=== PATIENT | female | born 1990 | race African-American/Black ===

== ENCOUNTER 2019-02-08 09:51 | Emergency (ER) | payer MEDICAID, OTHER ==
[~2019-02-08] VITALS: Ht 154.9 cm; Wt 94.8 kg
[2019-02-08 10:59] LABS: Eosinophils # (auto) 0.1 uL; Hemoglobin 13.6 g/dL (12.2-16.2); Monocytes # (auto) 0.4 uL
[2019-02-08 11:01] LABS: Basophils # (auto) 0 uL; Basophils % (auto) 0.7 % (0.0-2.0); Eosinophils % (auto) 2.9 % (0.0-7.0); Lymphocytes # (auto) 1.7 uL; Lymphocytes % (auto) 36.5 % (10.0-50.0); Mean Corpuscular Hgb Conc. 32.5 g/dL (32.0-36.0); Mean Corpuscular Volume 80.1 fL (80.0-100.0); Monocytes % (auto) 7.8 % (0.0-12.0); Neutrophils # (auto) 2.5 uL; Neutrophils % (auto) 52.1 % (37.0-80.0); Nucleated Red Blood Cells % 0.1 %; Platelet Count (auto) 219 10^3/uL (140-450); Red Blood Cells 5.24 10^6/uL (4.0-5.20); Red Cell Distribution Width 13.8 % (11.8-14.3); White Blood Cell 4.7 10^3/uL (4.4-10.8)
[2019-02-08 11:12] LABS: Urine Bacteria NONE SEEN /hpf (None Seen); Urine Blood 2+ /uL (Negative); Urine Mucus FEW (None Seen); Urine Specific Gravity 1.021 (1.001-1.035); Urine WBC 48 /hpf (0 - 5)
[2019-02-08 11:35] LABS: Albumin 3.8 g/dL (3.4-5.0); Bilirubin, Total 0.5 mg/dL (0.2-1.0); Calcium 8.8 mg/dL (8.5-10.1); Potassium 4.2 mmol/L (3.5-5.1); Total Protein 7.4 g/dL (6.4-8.2)
[2019-02-08 15:18] VITALS: BP 128/86
== END 2019-02-08 15:20 | disposition home or self-care (01) ==
LOC: ER 09:51
DX: K29.70 Gastritis, unspecified, without bleeding (principal); K44.9 Diaphragmatic hernia without obstruction or gangrene; N39.0 Urinary tract infection, site not specified
CPT/HCPCS: 36415; 74176; 80053; 81001; 81025; 83690; 85025

== ENCOUNTER 2020-04-30 08:53 | Emergency (ER) | payer MEDICAID ==
[~2020-04-30] VITALS: Ht 154.9 cm; Wt 94.3 kg
[2020-04-30] MEDS ORDERED: LIDOCAINE 1% HCL (LOCAL ANESTH.) INJ 20ML MDV ONE (10:17)
[2020-04-30 10:58] VITALS: BP 139/99
== END 2020-04-30 11:10 | disposition home or self-care (01) ==
LOC: ER 08:53
DX: L02.414 Cutaneous abscess of left upper limb (principal)
CPT/HCPCS: 10060; 99283; J2001

== ENCOUNTER 2020-05-02 08:03 | Emergency (ER) | payer MEDICAID ==
[~2020-05-02] VITALS: Ht 154.9 cm; Wt 94.3 kg
[2020-05-02 08:16] VITALS: BP 126/87
== END 2020-05-02 08:45 | disposition home or self-care (01) ==
LOC: ER 08:03
DX: Z48.00 Encounter for change or removal of nonsurgical wound dressing (principal); Z88.2 Allergy status to sulfonamides

== ENCOUNTER 2020-05-21 09:28 | Emergency (ER) | payer MEDICAID ==
[~2020-05-21] VITALS: Ht 154.9 cm; Wt 95.3 kg
[2020-05-21 09:58] VITALS: BP 137/90
== END 2020-05-21 09:57 | disposition home or self-care (01) ==
LOC: ER 09:28
DX: L02.416 Cutaneous abscess of left lower limb (principal); Z88.2 Allergy status to sulfonamides

== ENCOUNTER 2020-06-19 08:01 | Emergency (ER) | payer MEDICAID ==
[~2020-06-19] VITALS: Ht 154.9 cm; Wt 95.3 kg
[2020-06-19 08:07] VITALS: BP 118/75
== END 2020-06-19 08:41 | disposition home or self-care (01) ==
LOC: ER 08:01
DX: L73.9 Follicular disorder, unspecified (principal); Z88.2 Allergy status to sulfonamides

== ENCOUNTER 2020-07-19 11:46 | Emergency (ER) | payer MEDICAID ==
[~2020-07-19] VITALS: Ht 154.9 cm; Wt 94.8 kg
[2020-07-19 12:10] VITALS: BP 128/83
[2020-07-19] MEDS ORDERED: LIDOCAINE 1% HCL (LOCAL ANESTH.) INJ 20ML MDV IJ ONE (12:30)
== END 2020-07-19 13:10 | disposition home or self-care (01) ==
LOC: ER 11:46
DX: N61.1 Abscess of the breast and nipple (principal)
CPT/HCPCS: 10060; 99283; J2001

== ENCOUNTER 2021-09-15 10:05 | Emergency (ER) | payer MEDICAID ==
[~2021-09-15] VITALS: Ht 154.9 cm; Wt 95.3 kg
[2021-09-15 10:48] LABS: Urine Bacteria NONE SEEN /hpf (None Seen); Urine Blood 1+ /uL (Negative); Urine Mucus FEW (None Seen); Urine Specific Gravity 1.015 (1.001-1.035); Urine WBC 1 /hpf (0 - 5)
[2021-09-15 11:29] VITALS: BP 140/80
== END 2021-09-15 11:28 | disposition home or self-care (01) ==
LOC: ER 10:05
DX: R10.2 Pelvic and perineal pain (principal); Z88.0 Allergy status to penicillin; Z88.2 Allergy status to sulfonamides
CPT/HCPCS: 81001; 81025

== ENCOUNTER 2021-10-02 15:34 | Emergency (ER) | payer MEDICAID ==
[~2021-10-02] VITALS: Ht 154.9 cm; Wt 95.3 kg
[2021-10-02 16:42] VITALS: BP 158/91
[2021-10-02] MEDS ORDERED: IPRATROPIUM BROM 0.5 MG/2.5ML INH SOL NEB ONE (17:15)
[2021-10-02] MEDS ORDERED: ALBUTEROL SULF 2.5 MG/0.5ML(0.5%) NEB SOLN NEB ONE (17:15)
[2021-10-02] MEDS ORDERED: methylPREDNISolone SOD SUCC 125 MG/2 ML VL IM ONE (17:15)
[2021-10-02] MEDS ORDERED: PRED20TA2 PO (18:08)
== END 2021-10-02 18:18 | disposition home or self-care (01) ==
LOC: ER 15:37
DX: J45.901 Unspecified asthma with (acute) exacerbation (principal)
CPT/HCPCS: 94640; 96372; 99283; J2930; J7644

== ENCOUNTER 2021-10-04 12:52 | Emergency (ER) | payer MEDICAID ==
[~2021-10-04] VITALS: Ht 154.9 cm; Wt 92.5 kg
[~2021-10-04 12:52] MED LIST: PRED20TA2 PO
[2021-10-04] MEDS ORDERED: SODIUM CHLORIDE 0.9% 1,000 ML IV ONE (13:00)
[2021-10-04 13:02] VITALS: BP 150/91
[2021-10-04] MEDS ORDERED: ACETAMINOPHEN 325 MG TAB PO ONE (13:30)
[2021-10-04 15:38] LABS: Urine Bacteria NONE SEEN /hpf (None Seen); Urine Blood TRACE /uL (Negative); Urine Specific Gravity 1.016 (1.001-1.035); Urine WBC 1 /hpf (0 - 5)
[2021-10-04 17:49] LABS: Basophils # (auto) 0 10 ^3/uL (0-0.2); Eosinophils # (auto) 0 10 ^3/uL (0-0.8); Hemoglobin 13.9 g/dL (12.2-16.2); Lymphocytes # (auto) 0.8 10 ^3/uL (0.4-5.4); Monocytes # (auto) 0.4 10 ^3/uL (0-1.3)
[2021-10-04 17:51] LABS: Basophils % (auto) 0.3 % (0.0-2.0); Lymphocytes % (auto) 11.9 % (10.0-50.0); Mean Corpuscular Hemoglobin 25.3 pg (28.0-32.0); Mean Corpuscular Hgb Conc. 32.4 g/dL (32.0-36.0); Mean Corpuscular Volume 77.9 fL (80.0-100.0); Monocytes % (auto) 6.5 % (0.0-12.0); Neutrophils # (auto) 5.3 10 ^3/uL (1.6-8.6); Neutrophils % (auto) 81.3 % (37.0-80.0); Red Blood Cells 5.51 10^6/uL (4.0-5.20); Red Cell Distribution Width 13.6 % (11.8-14.3); White Blood Cell 6.6 10^3/uL (4.4-10.8)
[2021-10-04 18:15] LABS: Albumin 4.1 g/dL (3.4-5.0); CRP High Sensitivity 0.17 mg/dL (< 0.3); Calcium 9.3 mg/dL (8.5-10.1); Magnesium 3.2 mg/dL (1.6-2.6); Potassium 3.7 mmol/L (3.5-5.1)
[2021-10-04 18:21] LABS: Bilirubin, Total 0.7 mg/dL (0.2-1.0); Total Protein 8.3 g/dL (6.4-8.2)
== END 2021-10-04 21:36 | disposition left against medical advice (07) ==
LOC: ER 12:52
DX: R00.0 Tachycardia, unspecified (principal); B34.9 Viral infection, unspecified; J45.909 Unspecified asthma, uncomplicated; Z88.0 Allergy status to penicillin; Z88.2 Allergy status to sulfonamides; Z79.899 Other long term (current) drug therapy; Z20.822 Contact with and (suspected) exposure to COVID-19
CPT/HCPCS: 36415; 71045; 80053; 81001; 81025; 82728; 83735; 84484; 85025; 85379; 86141; 87426; 93005

== ENCOUNTER 2021-11-07 07:34 | Emergency (ER) | payer MEDICAID ==
[~2021-11-07] VITALS: Ht 154.9 cm; Wt 94.8 kg
[2021-11-07 07:56] VITALS: BP 153/87
[2021-11-07] MEDS ORDERED: LIDOCAINE 1% HCL (LOCAL ANESTH.) INJ 20ML MDV IJ ONE (08:00)
[2021-11-07] MEDS ORDERED: CLIN300C8 PO (08:30)
[2021-11-07] MEDS ORDERED: IBUP800T27 PO (08:30)
== END 2021-11-07 09:03 | disposition home or self-care (01) ==
LOC: ER 07:34
DX: N61.1 Abscess of the breast and nipple (principal); J45.909 Unspecified asthma, uncomplicated; Z79.899 Other long term (current) drug therapy; Z88.0 Allergy status to penicillin; Z88.2 Allergy status to sulfonamides
CPT/HCPCS: 10060; 87205; 99283; J2001

== ENCOUNTER 2022-05-17 14:10 | Emergency (ER) | payer MEDICAID ==
[~2022-05-17] VITALS: Ht 154.9 cm; Wt 100.0 kg
[~2022-05-17 14:10] MED LIST changes: +CLIN300C8 PO; +IBUP800T27 PO
[2022-05-17 14:54] LABS: Basophils # (auto) 0 10 ^3/uL (0-0.2); Eosinophils # (auto) 0.1 10 ^3/uL (0-0.8); Hemoglobin 12.6 g/dL (12.2-16.2); Lymphocytes # (auto) 1.9 10 ^3/uL (0.4-5.4); Mean Corpuscular Volume 76.4 fL (80.0-100.0); Monocytes # (auto) 0.4 10 ^3/uL (0-1.3); Neutrophils # (auto) 2.3 10 ^3/uL (1.6-8.6)
[2022-05-17 14:55] LABS: Basophils % (auto) 0.8 % (0.0-2.0); Eosinophils % (auto) 2.8 % (0.0-7.0); Hematocrit 40.3 % (36.0-46.0); Lymphocytes % (auto) 38.9 % (10.0-50.0); Mean Corpuscular Hgb Conc. 31.3 g/dL (32.0-36.0); Monocytes % (auto) 8.4 % (0.0-12.0); Neutrophils % (auto) 49.1 % (37.0-80.0); Red Blood Cells 5.28 10^6/uL (4.0-5.20); Red Cell Distribution Width 14.4 % (11.8-14.3); White Blood Cell 4.8 10^3/uL (4.4-10.8)
[2022-05-17 15:09] LABS: Albumin 3.5 g/dL (3.4-5.0); BUN/Creatinine Ratio 11.6; Calcium 8.5 mg/dL (8.5-10.1)
[2022-05-17 15:10] LABS: Mean Corpuscular Hemoglobin 23.9 pg (28.0-32.0)
[2022-05-17 15:12] LABS: Bilirubin, Total 0.5 mg/dL (0.2-1.0); Total Protein 7.2 g/dL (6.4-8.2)
[2022-05-17] MEDS: MECLIZINE HCL 25 MG TAB PO ONE (16:30)
[2022-05-17 16:56] LABS: Urine Bacteria NONE SEEN /hpf (None Seen); Urine Blood 1+ /uL (Negative); Urine Specific Gravity 1.015 (1.001-1.035); Urine WBC 2 /hpf (0 - 5)
[2022-05-17] MEDS ORDERED: MECL1TAB42 PO (17:33)
[2022-05-17] MEDS ORDERED: NITR-87 PO (17:41)
[2022-05-17 17:49] VITALS: BP 125/83
== END 2022-05-17 17:50 | disposition home or self-care (01) ==
LOC: ER 14:17
DX: R42 Dizziness and giddiness (principal); N39.0 Urinary tract infection, site not specified
CPT/HCPCS: 36415; 70450; 80053; 81001; 81025; 85025; 93005; 99285; J8597

== ENCOUNTER 2022-06-26 10:14 | Emergency (ER) | payer MEDICAID ==
[~2022-06-26] VITALS: Ht 175.3 cm; Wt 95.5 kg
[~2022-06-26 10:14] MED LIST changes: +MECL1TAB42 PO; +NITR-87 PO
[2022-06-26 10:50] LABS: Basophils # (auto) 0 10 ^3/uL (0-0.2); Eosinophils # (auto) 0.1 10 ^3/uL (0-0.8); Eosinophils % (auto) 1.7 % (0.0-7.0); Hemoglobin 12.9 g/dL (12.2-16.2); Lymphocytes # (auto) 1.7 10 ^3/uL (0.4-5.4); Mean Corpuscular Volume 76.3 fL (80.0-100.0); Monocytes # (auto) 0.4 10 ^3/uL (0-1.3); Neutrophils # (auto) 2.8 10 ^3/uL (1.6-8.6)
[2022-06-26 10:52] LABS: Basophils % (auto) 0.7 % (0.0-2.0); Hematocrit 41.1 % (36.0-46.0); Mean Corpuscular Hemoglobin 23.9 pg (28.0-32.0); Mean Corpuscular Hgb Conc. 31.3 g/dL (32.0-36.0); Monocytes % (auto) 8.7 % (0.0-12.0); Neutrophils % (auto) 54.9 % (37.0-80.0); Nucleated Red Blood Cells % 0.2 %; Red Blood Cells 5.38 10^6/uL (4.0-5.20); Red Cell Distribution Width 14.5 % (11.8-14.3)
[2022-06-26 10:58] LABS: Urine Bacteria FEW /hpf (None Seen); Urine Blood Negative /uL (Negative); Urine Mucus FEW (None Seen); Urine Specific Gravity 1.024 (1.001-1.035); Urine WBC 8 /hpf (0 - 5)
[2022-06-26 11:09] LABS: Albumin 3.7 g/dL (3.4-5.0); Calcium 8.6 mg/dL (8.5-10.1); Potassium 4.3 mmol/L (3.5-5.1)
[2022-06-26 11:12] LABS: BUN/Creatinine Ratio 10.9; Bilirubin, Total 0.8 mg/dL (0.2-1.0); Total Protein 7.3 g/dL (6.4-8.2)
[2022-06-26] MEDS ORDERED: PANT40TA2 PO (12:13)
[2022-06-26] MEDS ORDERED: NITR-87 PO (12:13)
[2022-06-26 12:33] VITALS: BP 121/77
== END 2022-06-26 12:36 | disposition home or self-care (01) ==
LOC: ER 10:14
DX: K29.70 Gastritis, unspecified, without bleeding (principal); N39.0 Urinary tract infection, site not specified; J45.909 Unspecified asthma, uncomplicated; I10 Essential (primary) hypertension; Z88.2 Allergy status to sulfonamides; Z88.1 Allergy status to other antibiotic agents
CPT/HCPCS: 36415; 80053; 81001; 83690; 85025

== ENCOUNTER 2022-12-03 08:32 | Emergency (ER) | payer MEDICAID ==
[~2022-12-03] VITALS: Ht 157.5 cm; Wt 110.3 kg
[~2022-12-03 08:32] MED LIST changes: +PANT40TA2 PO
[2022-12-03 09:20] LABS: Urine Bacteria FEW /hpf (None Seen); Urine Blood Negative /uL (Negative); Urine Mucus FEW (None Seen); Urine Specific Gravity 1.025 (1.001-1.035); Urine WBC 15 /hpf (0 - 5)
[2022-12-03 09:34] VITALS: BP 121/69
[2022-12-03 09:37] LABS: Basophils # (auto) 0 10 ^3/uL (0-0.2); Eosinophils # (auto) 0.1 10 ^3/uL (0-0.8); Mean Corpuscular Hemoglobin 23.8 pg (28.0-32.0); Monocytes # (auto) 0.4 10 ^3/uL (0-1.3); Monocytes % (auto) 7.8 % (0.0-12.0); Neutrophils # (auto) 3.4 10 ^3/uL (1.6-8.6); Nucleated Red Blood Cells % 0.1 %
[2022-12-03 09:39] LABS: Basophils % (auto) 0.9 % (0.0-2.0); Eosinophils % (auto) 1.3 % (0.0-7.0); Hematocrit 38.8 % (36.0-46.0); Hemoglobin 12.4 g/dL (12.2-16.2); Lymphocytes # (auto) 1.5 10 ^3/uL (0.4-5.4); Lymphocytes % (auto) 28.4 % (10.0-50.0); Mean Corpuscular Volume 74.4 fL (80.0-100.0); Neutrophils % (auto) 61.6 % (37.0-80.0); Red Blood Cells 5.22 10^6/uL (4.0-5.20); Red Cell Distribution Width 14.8 % (11.8-14.3); White Blood Cell 5.4 10^3/uL (4.4-10.8)
[2022-12-03 09:45] LABS: Amphetamine Screen, Urine NEGATIVE (NEGATIVE); Barbiturate Scree,Urine NEGATIVE (NEGATIVE); Benzodiazephine Screen, Urine NEGATIVE (NEGATIVE); Cannabinoid Screen, Urine POSITIVE (NEGATIVE); Cocaine Screen, Urine NEGATIVE (NEGATIVE); Opiate Scree,Urine NEGATIVE (NEGATIVE); Phencyclidine Screen, Urine NEGATIVE (NEGATIVE)
[2022-12-03 09:55] LABS: Albumin 3.7 g/dL (3.4-5.0); BUN/Creatinine Ratio 15.1; Bilirubin, Total 0.5 mg/dL (0.2-1.0); Calcium 8.9 mg/dL (8.5-10.1); Potassium 4.1 mmol/L (3.5-5.1); Total Protein 7.7 g/dL (6.4-8.2)
[2022-12-03 10:01] LABS: Alcohol, Urine < 3.0 mg/dL (0-10)
[2022-12-03] MEDS ORDERED: IBUP800T27 PO (10:43)
[2022-12-03] MEDS ORDERED: CIPR-173 PO (10:43)
== END 2022-12-03 10:50 | disposition home or self-care (01) ==
LOC: ER 08:32
DX: N39.0 Urinary tract infection, site not specified (principal); K83.8 Other specified diseases of biliary tract; J45.909 Unspecified asthma, uncomplicated; K21.9 Gastro-esophageal reflux disease without esophagitis; I10 Essential (primary) hypertension; Z87.440 Personal history of urinary (tract) infections; Z88.0 Allergy status to penicillin; Z88.2 Allergy status to sulfonamides
CPT/HCPCS: 36415; 76705; 80053; 80307; 81001; 81025; 82150; 83690; 85025

== ENCOUNTER 2023-03-08 08:03 | Emergency (ER) | payer MEDICAID ==
[~2023-03-08] VITALS: Ht 157.5 cm; Wt 99.0 kg
[~2023-03-08 08:03] MED LIST changes: +CIPR-173 PO; +CLIN300C70 PO; -CLIN300C8 PO; +IBUP-1456 PO; -IBUP800T27 PO
[2023-03-08 08:54] LABS: Urine Bacteria NONE SEEN /hpf (None Seen); Urine Blood Negative /uL (Negative); Urine Mucus MODERATE (None Seen); Urine Specific Gravity 1.025 (1.001-1.035); Urine WBC 3 /hpf (0 - 5)
[2023-03-08 09:23] VITALS: BP 139/98
[2023-03-08] MEDS ORDERED: ONDANSETRON ODT 4 MG TAB PO ONE (09:30)
[2023-03-08] MEDS ORDERED: ACETAMINOPHEN 500 MG TAB PO ONE (09:30)
[2023-03-08 10:00] LABS: Basophils # (auto) 0 10 ^3/uL (0-0.2); Basophils % (auto) 0.2 % (0.0-2.0); Eosinophils # (auto) 0 10 ^3/uL (0-0.8); Monocytes # (auto) 0.4 10 ^3/uL (0-1.3); Neutrophils # (auto) 1.4 10 ^3/uL (1.6-8.6)
[2023-03-08 10:02] LABS: Eosinophils % (auto) 0.7 % (0.0-7.0); Hemoglobin 13.3 g/dL (12.2-16.2); Lymphocytes # (auto) 1.2 10 ^3/uL (0.4-5.4); Lymphocytes % (auto) 38.7 % (10.0-50.0); Mean Corpuscular Hemoglobin 23.5 pg (28.0-32.0); Mean Corpuscular Hgb Conc. 31.7 g/dL (32.0-36.0); Mean Corpuscular Volume 74.1 fL (80.0-100.0); Monocytes % (auto) 13.9 % (0.0-12.0); Neutrophils % (auto) 46.5 % (37.0-80.0); Nucleated Red Blood Cells % 0.3 %; Red Blood Cells 5.67 10^6/uL (4.0-5.20); Red Cell Distribution Width 15.4 % (11.8-14.3)
[2023-03-08 10:18] LABS: Albumin 3.7 g/dL (3.4-5.0); Calcium 8.7 mg/dL (8.5-10.1); Potassium 3.5 mmol/L (3.5-5.1)
[2023-03-08 10:28] LABS: BUN/Creatinine Ratio 8.8 (10.0-20.0); Bilirubin, Total 0.6 mg/dL (0.2-1.0); Total Protein 7.6 g/dL (6.4-8.2)
[2023-03-08] MEDS ORDERED: ACET-1079 PO (11:41)
[2023-03-08] MEDS ORDERED: ZOFR4T PO (11:41)
[2023-03-08] MEDS ORDERED: CEPH500T PO (11:41)
[2023-03-08] MEDS ORDERED: cefTRIAXone SOD 1,000 MG VL IM ONE (11:45)
[2023-03-08] MEDS ORDERED: LIDOCAINE 1% HCL (LOCAL ANESTH.) INJ 20ML MDV ID ONE (12:00)
== END 2023-03-08 12:08 | disposition home or self-care (01) ==
LOC: ER 08:03
DX: N12 Tubulo-interstitial nephritis, not specified as acute or chronic (principal); J45.909 Unspecified asthma, uncomplicated; K21.9 Gastro-esophageal reflux disease without esophagitis; I10 Essential (primary) hypertension; Z88.0 Allergy status to penicillin; Z88.2 Allergy status to sulfonamides; Z79.899 Other long term (current) drug therapy
CPT/HCPCS: 36415; 71045; 74176; 80053; 81001; 81025; 83690; 85025; 87086; 96372; 99285; J0696; J2001; Q0162

== ENCOUNTER 2023-08-22 06:50 | Emergency (ER) | payer MEDICAID ==
[~2023-08-22] VITALS: Ht 157.5 cm; Wt 98.0 kg
[~2023-08-22 06:50] MED LIST changes: +ACET-1079 PO; +CEPH500T PO; +ZOFR4T PO
[2023-08-22 07:25] LABS: Basophils # (auto) 0 10 ^3/uL (0-0.2); Basophils % (auto) 0.5 % (0.0-2.0); Eosinophils # (auto) 0.1 10 ^3/uL (0-0.8); Eosinophils % (auto) 2.2 % (0.0-7.0); Hematocrit 38.2 % (36.0-46.0); Lymphocytes # (auto) 2.2 10 ^3/uL (0.4-5.4); Lymphocytes % (auto) 37.6 % (10.0-50.0); Mean Corpuscular Hemoglobin 23.6 pg (28.0-32.0); Mean Corpuscular Hgb Conc. 31.3 g/dL (32.0-36.0); Mean Corpuscular Volume 75.3 fL (80.0-100.0); Monocytes # (auto) 0.5 10 ^3/uL (0-1.3); Monocytes % (auto) 8.7 % (0.0-12.0); Nucleated Red Blood Cells % 0.1 %; Red Blood Cells 5.07 10^6/uL (4.0-5.20); Red Cell Distribution Width 14.9 % (11.8-14.3); White Blood Cell 5.9 10^3/uL (4.4-10.8)
[2023-08-22 08:24] LABS: Alanine Aminotransferase 15 U/L (7-40); Albumin 4.3 g/dL (3.2-4.8); Alkaline Phosphatase 68 U/L (46-116); Anion Gap 7 (5-15); Aspartate Aminotransferase 13 U/L (13-40); BUN/Creatinine Ratio 11.5 (10.0-20.0); Bilirubin, Total 0.4 mg/dL (0.2-1.0); Blood Urea Nitrogen 10 mg/dL (9-23); Carbon Dioxide 25 mmol/L (20-30); Chloride 108 mmol/L (98-107); Glucose 98 mg/dL (74-106); Potassium 3.6 mmol/L (3.5-5.1); Sodium 140 mmol/L (136-145); Total Protein 6.9 g/dL (5.7-8.2)
[2023-08-22 08:44] LABS: Urine Bacteria FEW /hpf (None Seen); Urine Blood 2+ /uL (Negative); Urine Clarity HAZY (Clear); Urine Color Yellow (Yellow); Urine Mucus FEW (None Seen); Urine Protein, UAD TRACE (Negative); Urine Specific Gravity 1.031 (1.001-1.035); Urine Urobilinogen Normal (Negative); Urine WBC 3 /hpf (0 - 5)
[2023-08-22] MEDS ORDERED: IBU600T PO (08:57)
[2023-08-22] MEDS ORDERED: TAMS-35 PO (08:57)
[2023-08-22] MEDS ORDERED: NITR-87 PO (08:57)
[2023-08-22] MEDS ORDERED: TAMSULOSIN HYDROCHLORIDE 0.4 MG CAP PO ONE (09:00)
[2023-08-22] MEDS ORDERED: SODIUM CHLORIDE 0.9% 1,000 ML IV ONE (09:00)
[2023-08-22] MEDS ORDERED: KETOROLAC TROMETH 30 MG/ML 1ML VIAL IV ONE (09:00)
[2023-08-22 14:34] VITALS: BP 143/96; PULSE 83; RESP 19; TEMP 98; O2SAT 100
== END 2023-08-22 14:36 | disposition home or self-care (01) ==
LOC: ER 06:50
DX: N39.0 Urinary tract infection, site not specified (principal); J45.909 Unspecified asthma, uncomplicated; I10 Essential (primary) hypertension; K21.9 Gastro-esophageal reflux disease without esophagitis; Z88.0 Allergy status to penicillin; Z88.2 Allergy status to sulfonamides
CPT/HCPCS: 36415; 80053; 81001; 85025; 96361; 96374; 99283; J1885; J7030

== ENCOUNTER 2024-05-21 10:31 | Emergency (ER) | payer MEDICAID ==
[~2024-05-21] VITALS: Ht 154.9 cm; Wt 94.2 kg
[~2024-05-21 10:31] MED LIST changes: +CLIN1CAP70 PO; -CLIN300C70 PO; +DICY10CA PO; +IBU600T PO; +TAMS-35 PO
[2024-05-21 11:27] LABS: Basophils # (auto) 0 10 ^3/uL (0-0.2); Eosinophils # (auto) 0.1 10 ^3/uL (0-0.8); Monocytes # (auto) 0.3 10 ^3/uL (0-1.3); Red Cell Distribution Width 14.7 % (11.8-14.3)
[2024-05-21 11:29] LABS: Basophils % (auto) 0.5 % (0.0-2.0); Eosinophils % (auto) 1.3 % (0.0-7.0); Hematocrit 43.5 % (36.0-46.0); Hemoglobin 14.3 g/dL (12.2-16.2); Lymphocytes % (auto) 39.3 % (10.0-50.0); Mean Corpuscular Hemoglobin 25.5 pg (28.0-32.0); Mean Corpuscular Hgb Conc. 32.8 g/dL (32.0-36.0); Mean Corpuscular Volume 77.8 fL (80.0-100.0); Monocytes % (auto) 6.9 % (0.0-12.0); Neutrophils # (auto) 2.6 10 ^3/uL (1.6-8.6); Nucleated Red Blood Cells % 0.1 %; Platelet Count (auto) 261 10^3/uL (140-450); Red Blood Cells 5.58 10^6/uL (4.0-5.20)
[2024-05-21 11:34] LABS: Chloride 106 mmol/L (98-107); Potassium 3.7 mmol/L (3.5-5.1); Sodium 137 mmol/L (136-145)
[2024-05-21 11:35] LABS: Anion Gap 8 (5-15); Calcium 9.6 mg/dL (8.7-10.4); Carbon Dioxide 23 mmol/L (20-30)
[2024-05-21 11:40] LABS: BUN/Creatinine Ratio 9.4 (10.0-20.0); Blood Urea Nitrogen 8 mg/dL (9-23); Glucose 92 mg/dL (74-106)
[2024-05-21 11:55] VITALS: PULSE 82; RESP 16; O2SAT 99
[2024-05-21] MEDS: MAALOX PLUS or MAALOX 30 ML PO ONE (12:05)
[2024-05-21] MEDS: LIDOCAINE VISCOUS 2% 15ML UD PO ONE (12:05)
[2024-05-21] MEDS: DONNATAL 5ml ORAL Elix (BELLADONNA ALK-PHENOBARB) PO ONE (12:06)
[2024-05-21 13:03] VITALS: BP 130/87; PULSE 73; RESP 62; TEMP 97.8; O2SAT 96
[2024-05-21 13:25] LABS: Urine Bacteria FEW /hpf (None Seen); Urine Blood 1+ /uL (Negative); Urine Clarity Clear (Clear); Urine Color Light-Yellow (Yellow); Urine Mucus FEW (None Seen); Urine Protein, UAD Negative (Negative); Urine Specific Gravity 1.025 (1.001-1.035); Urine Urobilinogen Normal (Negative); Urine WBC 1 /hpf (0 - 5); Urine pH 5.5 (5.0-9.0)
== END 2024-05-21 12:56 | disposition home or self-care (01) ==
LOC: ER 10:31
DX: K29.00 Acute gastritis without bleeding (principal); I10 Essential (primary) hypertension; J45.909 Unspecified asthma, uncomplicated; K21.9 Gastro-esophageal reflux disease without esophagitis; Z88.0 Allergy status to penicillin; Z88.2 Allergy status to sulfonamides; Z79.899 Other long term (current) drug therapy
CPT/HCPCS: 36415; 80048; 81001; 85025

== ENCOUNTER 2025-05-19 06:50 | Emergency (ER) | payer MEDICAID ==
[~2025-05-19] VITALS: Ht 154.9 cm; Wt 102.4 kg
[2025-05-19] MEDS ORDERED: CEPH500C PO (07:43)
[2025-05-19 07:53] VITALS: BP 141/75; PULSE 90; RESP 20; TEMP 97.8; O2SAT 97
--- NOTE | 2025-05-19 07:54 | ED.PDOC ---
History of Present Illness(SKN HPI Comments A 34 YEAR OLD FEMALE PRESENTS TO THE ED WITH COMPLAINT OF FOLLICULITIS TO LEFT ARMPIT S/P SHAVING. PATIENT STATES THAT SHE SHAVED HER ARMPITS AND AFTERWARDS DEVELOPED A LUMP UNDERNEATH HER LEFT ARMPIT. PATIENT STATES THAT THE LUMP IS PAINFUL TO THE TOUCH. PATIENT DENIES FEVER, CHILLS, SHORTNESS OF BREATH, CHEST PAIN, ABDOMINAL PAIN, NAUSEA, VOMITING, HEADACHE, OR OTHER COMPLAINTS. NO OTHER SYMPTOMS OR MODIFYING FACTORS AT THIS TIME. PATIENT IS ALERT, ORIENTED X 4, AND HAS STEADY GAIT. Chief Complaint: Upper Extremity Time Seen by MD: 07:37 Primary Care Provider: Unknown History of Present Illness: Nurses Notes, Medications, Allergies Allergies: Coded Allergies: Penicillins (Verified Allergy, Unknown, 01/19/21) Sulfa Antibiotics (Verified Allergy, Unknown, 04/30/20) Home Meds Active Scripts Ibuprofen (Ibuprofen) 800 Mg Tab, 1 TAB PO TID, #30 TAB Prov:SOLOMON WOOTEN 05/19/25 Cephalexin Monohydrate (Cephalexin) 500 Mg Cap, 1 CAP PO QID, #40 CAP Prov:SOLOMON WOOTEN 05/19/25 Nitrofurantoin Monohydrate Mac (Macrobid) 100 Mg Cap, 100 MG PO BID for 10 Days, #20 CAP Prov:JO OCAMPO MD 09/01/23 Dicyclomine Hcl (BENTYL CAPSULE) 10 Mg Cp, 1 CAP PO TID for 3 Days, #10 CAP 11 Refills Prov:JO OCAMPO MD 09/01/23 Ondansetron Odt 4MG Tab (ZOFRAN PO) 4 Mg Tb, 4 MG PO BID for 7 Days, #14 TAB ODT TAB-DISSOLVE IN MOUTH, THEN SWALLOW Prov:JO OCAMPO MD 09/01/23 Nitrofurantoin Monohydrate Mac (Macrobid) 100 Mg Cap, 100 MG PO BID for 7 Days, #20 CAP Prov:JAGUAR ORTIZ MD 08/22/23 Tamsulosin Hcl (Flomax) 0.4 Mg Cap, 1 CAP PO DAILY for 5 Days, #5 CAP 11 Refills Prov:JAGUAR ORTIZ MD 08/22/23 Ibuprofen Micronized (MOTRIN TABLET) 600 Mg Tb, 600 MG PO TID PRN for 5 Days, #15 TAB *Black box warning-NSAIDS can increase risk of NV & hypertension, GI irritation, ulceration, bleed, perferation. Do not use post cardiac surgery. Use short duration/lowest effective dose. Prov:JAGUAR ORTIZ MD 08/22/23 Ondansetron Odt 4MG Tab (ZOFRAN PO) 4 Mg Tb, 4 MG PO Q6HPRN PRN, #12 TAB 0 Refills ODT TAB-DISSOLVE IN MOUTH, THEN SWALLOW Prov:KYLE CHIN [facility] 03/08/23 Acetaminophen (Tylenol) 325 Mg Tb, 325 MG PO Q4HPRN PRN, #30 TAB 0 Refills Take 1-2 caps po q4h prn for pain (Do not exceed 3,000mg of acetaminophen in 24 hours) Prov:KYLE CHIN [facility] 03/08/23 Cephalexin Monohydrate (Cephalexin) 500 Mg Tab, 1 TAB PO QID for 7 Days, #28 TAB 0 Refills Prov:KYLE CHIN [facility] 03/08/23 Ciprofloxacin Hcl (Cipro) 500 Mg Tab, 1 TAB PO BID, #14 TAB Prov:SOLOMON WOOTEN 12/03/22 Ibuprofen (Ibuprofen) 800 Mg Tab, 1 TAB PO TID, #30 TAB Prov:SOLOMON WOOTEN 12/03/22 Pantoprazole Sodium Sesquihydr (Protonix) 40 Mg Tab, 40 MG PO DAILY for 10 Days, #10 TAB Prov:JAGUAR ORTIZ MD 06/26/22 Nitrofurantoin Monohydrate Mac (Macrobid) 100 Mg Cap, 100 MG PO BID for 7 Days, #14 CAP Prov:JAGUAR ORTIZ MD 06/26/22 Nitrofurantoin Monohydrate Mac (Macrobid) 100 Mg Cap, 100 MG PO BID for 5 Days, #10 CAP Prov:ROCKY RAMOS MD 05/17/22 Meclizine HCl (Meclizine 25) 25 Mg Tab, 25 MG PO BID for 3 Days, #6 TAB Prov:ROCKY RAMOS MD 05/17/22 Ibuprofen (Ibuprofen) 800 Mg Tab, 800 MG PO Q8HP PRN for 8 Days, #24 TAB Prov:SOLOMON WOOTEN 11/07/21 Clindamycin Hcl (Clindamycin Hcl) 300 Mg Cap, 300 MG PO QID for 7 Days, #28 CAP Prov:SOLOMON WOOTEN 11/07/21 Prednisone (Prednisone) 20 Mg Tab, 60 MG PO DAILY for 5 Days, #15 MG Prov:SOLOMON WOOTEN 10/02/21 Information Source: Patient Mode of Arrival: Ambulatory Severity: Moderate Timing: Days Duration: Since onset, Days Prehospital treatment: None Location: Arm (ARMPIT ON LEFT ARM ) Mechanism: Spontaneous Onset, Cosmetic Developed: Other (LUMP) Occurence: Indoors Object: None Condition of Object: None Wound Type: Other (RED BUMP ) Immunization Status of Animal: NA Tetanus: UTD Associated Signs and Symptoms: Redness, Swelling, Pain Past Medical History PAST MEDICAL HISTORY: Asthma, GERD, HTN, UTI'S Surgical History: Denies all surgeries GAS BOOSTER ENGINEER History: No Pertinent GAS BOOSTER ENGINEER History Family History Family History: Reviewed,noncontributory to illness, Family hx of HTN Social History Smoker: Non-Smoker Alcohol: Denies ETOH Use Drugs: Denies Drug Use Lives In: Home Constitutional: denies: chills, diaphoresis, fatigue, fever, malaise, sweats, weakness, others EENTM: denies: blurred vision, double vision, ear bleeding, ear discharge, ear drainage, ear pain, ear ringing, eye pain, eye redness, hearing loss, mouth pain, mouth swelling, nasal discharge, nose bleeding, nose congestion, nose pain, photophobia, tearing, throat pain, throat swelling, voice changes, others Respiratory: denies: cough, hemoptysis, orthopnea, SOB at rest, shortness of breath, SOB with excertion, stridor, wheezing, others Cardiovascular: denies: chest pain, dizzy spells, diaphoresis, Dyspnea on exertion, edema, irregular heart beat, left arm pain, lightheadedness, palpitations, PND, syncope, others Gastrointestinal: denies: abdomen distended, abdominal pain, blood streaked bowels, constipated, diarrhea, dysphagia, difficulty swallowing, hematemesis, melena, nausea, poor appetite, poor fluid intake, rectal bleeding, rectal pain, vomiting, others Genitourinary: denies: abnormal vagina bleeding, burning, dyspareunia, dysuria, flank pain, frequency, hematuria, incontinence, pain, , vagina discharge, urgency, others Neurological: denies: dizziness, fainting, headache, left sided numbness, left sided weakness, numbness, paresthesia, pre-existing deficit, right sided numbness, right sided weakness, seizure, speech problems, tingling, tremors, weakness, others Musculoskeletal: denies: back pain, gout, joint pain, joint swelling, muscle pain, muscle stiffness, neck pain, others Integumetry: reports: lumps (LEFT AXILLA); denies: bruises, change in color, change in hair/nails, dryness, laceration, lesions, rash, wounds, others Allergic/Immunocompromised: denies: Difficulty Healing, Frequent Infections, Hives, Itching, others Hematologic/Lymphatic: denies: anemia, blood clots, easy bleeding, easy bruising, swollen glands, others Endocrine: denies: excessive hunger, excessive sweating, excessive thirst, excessive urination, flushing, intolerance to cold, intolerance to heat, unexpla ined weight gain, unexplained weight loss, others Psychiatric: denies: anxiety, bipolar disorder, depression, hopeless, panic disorder, schizophrenia, sleepless, suicidal, others All Other Systems: Reviewed and Negative Physical Exam General Appearance: No Apparent Distress, Obese HEENT: Normal ENT Inspection, PERRL/EOMI, Pharynx Normal, TMs Normal Neck: Full Range of Motion, Non-Tender, Normal, Normal Inspection Respiratory: Chest Non-Tender, Lungs Clear, No Accessory Muscle Use, No Respira tory Distress, Normal Breath Sounds Cardiovascular: No Edema, No JVD, No Murmur, No Gallop, Normal Peripheral Pulses, Regular Rate/Rhythm Breast Exam: Deferred Gastrointestinal: No Organomegaly, Non Tender, No Pulsatile Mass, Normal Bowel Sounds, Soft Genitalia: Deferred Pelvic: Deferred Rectal: Deferred Extremities: No calf tenderness, Normal capillary refill, Normal range of motion, No pedal edema, Tender (WITH A RED BUMP ON LEFT AXILLA, NO OPEN WOUND SEEN. ) Musculoskeletal : Apperance: Normal Neurologic: Alert, loan operations specialist II-XII nml as Tested, No Motor Deficits, Normal Affect, Normal Mood, No Sensory Deficits Cerebellar Function: Normal Reflexes: Normal Skin: Dry, Normal Color, Warm, Other (A BUMP WITH LOCALIZED REDNESS, HARDNESS AND TENDERNESS ON LEFT AXILLA, NO OPEN WOUND SEEN. ) Peripheral Pulses: 2+ carotid (R), 2+ carotid (L) Lymphatic: No Adenopathy Was a procedure done? Was a procedure done?: No Differential Diagnosis (INTG) Differential Diagnosis: Cellulitis Differential Diagnosis: Abscess, Cellulitis, Impetigo, Intertrigo X-Ray, Labs, Meds, VS Vital Signs Date Time Temp Pulse Resp B/P (MAP) Pulse Ox O2 Delivery O2 Flow Rate FiO2 05/19/25 07:53 90 20 97 Room Air 05/19/25 07:53 97.8 90 20 141/75 (97) 97 97.8 05/19/25 06:59 97.8 90 20 141/75 97 97.8 X-Ray, Labs, Meds, VS Comment EXTERNAL MEDICAL RECORDS REVIEWED: [NONE] INDEPENDENT HISTORIANS: [NONE] SOCIAL DETERMINANTS OF HEALTH: [NONE] LABS ORDERED: NONE REVIEWED AND INTERPRETED RESULTS: NONE IMAGING ORDERED: NONE TREATMENTS ORDERED: NO PROCEDURES PERFORMED: NONE CRITICAL CARE TIME: NONE I HAVE DISCUSSED THE PATIENT WITH THE ATTENDING PHYSICIAN, DR. KIRKPATRICK, AND SHE AGREES WITH THE PATIENT'S PLAN OF CARE AND DISPOSITION. BASED ON HISTORY OF PRESENT ILLNESS, AND PHYSICAL EXAM, PATIENT WILL BE DISCHARG ED HOME. DISCUSSED PLAN FOR DISCHARGE HOME WITH RX [KEFLEX AND MOTRIN ]. MEDICATION WARNINGS GIVEN. SHARED DECISION MAKING: DISCUSSED WITH PATIENT THAT THEIR WORKUP WAS NORMAL. PATIENT INSTRUCTED TO FOLLOW UP WITH PRIMARY CARE PROVIDER IN 1-2 DAYS FOR RE- EVALUATION OF SYMPTOMS. PATIENT VERBALIZES UNDERSTANDING TO RETURN TO ED FOR NEW OR WORSENING SYMPTOMS OR IF FOLLOW UP WITH PCP CANNOT BE OBTAINED. PATIENT FEELS COMFORTABLE GOING HOME AT THIS TIME. ALL QUESTIONS ADDRESSED AT TIME OF DISCHARGE. Time of 1ST Reevaluation: 08:08 Reevaluation 1ST: Unchanged Patient Education/Counseling: Diagnosis, Treatment, Need For Follow Up Family Education/Counseling: Diagnosis, Treatment, Need For Follow Up Medical Screening: No EMC Exist At This Time SEPSIS Sepsis Screen Date sepsis recognized/suspect: May 19, 2025 Time Sepsis recognized/suspect: 702 Recent Procedure: No On Antibiotic Therapy: No Respiratory Rate >20: No Heart Rate >90: No Temp<36 C (96.8 F) or >38.3 C: No SBP <90 or MAP <65 mmHG: No New Acute Mental Status Change: No Is the patient on CPAP, BIPAP,: No Vital Signs Date Time Temp Pulse Resp B/P (MAP) Pulse Ox O2 Delivery O2 Flow Rate FiO2 05/19/25 07:53 90 20 97 Room Air 05/19/25 07:53 97.8 90 20 141/75 (97) 97 97.8 05/19/25 06:59 97.8 90 20 141/75 97 97.8 Departure 1 Departure Time of Disposition: 08:28 Impression: Primary Impression: Folliculitis of left axilla Disposition: HOME / SELF CARE / HOMELESS Condition: Stable Additional Instructions: FOLLOW-UP WITH PCP IN 1 TO 2 DAYS. TAKE MEDICATIONS PRESCRIBED. RETURN TO ED FOR ANY NEW OR WORSENING SYMPTOMS. e-Prescriptions Ibuprofen (Ibuprofen) 800 Mg Tab 1 TAB PO TID, #30 TAB Prov: SOLOMON WOOTEN 05/19/25 Cephalexin Monohydrate (Cephalexin) 500 Mg Cap 1 CAP PO QID, #40 CAP Prov: SOLOMON WOOTEN 05/19/25 Discharged With: Self Critical Care Note Critical Care Time?: No Stability Stability form required: No Heart Score Heart Score: Heart Score Response (Comments) Value History N/A 0 EKG N/A 0 Age N/A 0 Risk Factors N/A 0 Troponin N/A 0 Total 0 I personally scribed for SOLOMON WOOTEN ([email or web address]) on 05/19/25 at 07:53. Electronically submitted by Chad Cosme ([email or web address]). SOLOMON WOOTEN May 19, 2025 07:53
== END 2025-05-19 07:55 | disposition home or self-care (01) ==
LOC: ER 06:59
DX: L02.422 Furuncle of left axilla (principal); I10 Essential (primary) hypertension; J45.909 Unspecified asthma, uncomplicated; Z79.899 Other long term (current) drug therapy; Z88.0 Allergy status to penicillin; Z88.2 Allergy status to sulfonamides

== ENCOUNTER 2025-08-05 06:36 | Emergency (ER) | payer MEDICAID ==
[~2025-08-05] VITALS: Ht 162.6 cm; Wt 103.7 kg
[~2025-08-05 06:36] MED LIST changes: +CEPH500C PO
[2025-08-05] MEDS ORDERED: CLINDAMYCIN 900MG IV 50 ML IV ONE (07:30)
--- NOTE | 2025-08-05 07:36 | ED.PDOC ---
History of Present Illness HPI Comments This is a 34-year-old female who has got chronic hidradenitis. She comes in with breast pain with to lesions noted on the left breast. A lot of it is related to the fact that her breasts are rubbing together and are large in size. She has been applying heat to it it has not popped yet but it is very sensitive to touch. No fever no chills no other symptoms Chief Complaint: Breast pain Time Seen by MD: 07:32 Primary Care Provider: Unknown Reviewed Notes: Nurses Notes, Medications, Allergies Allergies: Coded Allergies: Penicillins (Verified Allergy, Unknown, 01/19/21) Sulfa Antibiotics (Verified Allergy, Unknown, 04/30/20) Home Meds Active Scripts Ibuprofen (Ibuprofen) 800 Mg Tab, 1 TAB PO TID, #30 TAB Prov:SOLOMON WOOTEN 05/19/25 Cephalexin Monohydrate (Cephalexin) 500 Mg Cap, 1 CAP PO QID, #40 CAP Prov:SOLOMON WOOTEN 05/19/25 Nitrofurantoin Monohydrate Mac (Macrobid) 100 Mg Cap, 100 MG PO BID for 10 Days, #20 CAP Prov:JO OCAMPO MD 09/01/23 Dicyclomine Hcl (BENTYL CAPSULE) 10 Mg Cp, 1 CAP PO TID for 3 Days, #10 CAP 11 Refills Prov:JO OCAMPO MD 09/01/23 Ondansetron Odt 4MG Tab (ZOFRAN PO) 4 Mg Tb, 4 MG PO BID for 7 Days, #14 TAB ODT TAB-DISSOLVE IN MOUTH, THEN SWALLOW Prov:JO OCAMPO MD 09/01/23 Nitrofurantoin Monohydrate Mac (Macrobid) 100 Mg Cap, 100 MG PO BID for 7 Days, #20 CAP Prov:JAGUAR ORTIZ MD 08/22/23 Tamsulosin Hcl (Flomax) 0.4 Mg Cap, 1 CAP PO DAILY for 5 Days, #5 CAP 11 Refills Prov:JAGUAR ORTIZ MD 08/22/23 Ibuprofen Micronized (MOTRIN TABLET) 600 Mg Tb, 600 MG PO TID PRN for 5 Days, #15 TAB *Black box warning-NSAIDS can increase risk of DC & hypertension, GI irritation, ulceration, bleed, perferation. Do not use post cardiac surgery. Use short duration/lowest effective dose. Prov:JAGUAR ORTIZ MD 08/22/23 Ondansetron Odt 4MG Tab (ZOFRAN PO) 4 Mg Tb, 4 MG PO Q6HPRN PRN, #12 TAB 0 Refills ODT TAB-DISSOLVE IN MOUTH, THEN SWALLOW Prov:KYLE CHIN [facility] [place] 03/08/23 Acetaminophen (Tylenol) 325 Mg Tb, 325 MG PO Q4HPRN PRN, #30 TAB 0 Refills Take 1-2 caps po q4h prn for pain (Do not exceed 3,000mg of acetaminophen in 24 hours) Prov:KYLE CHIN [facility] [place] 03/08/23 Cephalexin Monohydrate (Cephalexin) 500 Mg Tab, 1 TAB PO QID for 7 Days, #28 TAB 0 Refills Prov:KYLE CHIN [facility] [place] 03/08/23 Ciprofloxacin Hcl (Cipro) 500 Mg Tab, 1 TAB PO BID, #14 TAB Prov:SOLOMON WOOTEN 12/03/22 Ibuprofen (Ibuprofen) 800 Mg Tab, 1 TAB PO TID, #30 TAB Prov:SOLOMON WOOTEN 12/03/22 Pantoprazole Sodium Sesquihydr (Protonix) 40 Mg Tab, 40 MG PO DAILY for 10 Days, #10 TAB Prov:JAGUAR ORTIZ MD 06/26/22 Nitrofurantoin Monohydrate Mac (Macrobid) 100 Mg Cap, 100 MG PO BID for 7 Days, #14 CAP Prov:JAGUAR ORTIZ MD 06/26/22 Nitrofurantoin Monohydrate Mac (Macrobid) 100 Mg Cap, 100 MG PO BID for 5 Days, #10 CAP Prov:ROCKY RAMOS MD 05/17/22 Meclizine HCl (Meclizine 25) 25 Mg Tab, 25 MG PO BID for 3 Days, #6 TAB Prov:ROCKY RAMOS MD 05/17/22 Ibuprofen (Ibuprofen) 800 Mg Tab, 800 MG PO Q8HP PRN for 8 Days, #24 TAB Prov:SOLOMON WOOTEN 11/07/21 Clindamycin Hcl (Clindamycin Hcl) 300 Mg Cap, 300 MG PO QID for 7 Days, #28 CAP Prov:SOLOMON WOOTEN 11/07/21 Prednisone (Prednisone) 20 Mg Tab, 60 MG PO DAILY for 5 Days, #15 MG Prov:SOLOMON WOOTEN 10/02/21 Mode of Arrival: Ambulatory Past Medical History PAST MEDICAL HISTORY: Asthma, GERD, HTN, UTI'S Past Medical History (Other): Hidradenitis Surgical History: Denies all surgeries SOFTWARE QA MANAGER History: No Pertinent SOFTWARE QA MANAGER History Family History Family History: Reviewed,noncontributory to illness, Family hx of HTN Social History Smoker: Non-Smoker Alcohol: Denies ETOH Use Drugs: Denies Drug Use Lives In: Home Constitutional: reports: chills, fever Integumetry: reports: change in color, lesions All Other Systems: Reviewed and Negative Physical Exam General Appearance: No Apparent Distress, Normal HEENT: Pharynx Normal, TMs Normal Neck: Full Range of Motion, Non-Tender, Supple Respiratory: Lungs Clear, No Accessory Muscle Use, No Respiratory Distress Cardiovascular: Regular Rate/Rhythm Breast Exam: None (Erythema and warmth noted to the left breast with two fluctuant lesions.) Gastrointestinal: Non Tender, Soft Genitalia: Deferred Pelvic: Deferred Rectal: Deferred Extremities: Normal capillary refill, Normal inspection, Normal range of motion Neurologic: Alert, Normal Affect, Normal Mood Cerebellar Function: Normal Reflexes: NOT DONE Skin: Dry, Warm, Other (Two large nodules on the left breast with erythema to surrounding tissue) Lymphatic: No Adenopathy Was a procedure done? Was a procedure done?: No Differential Dx Considerations may include: Breast mass X-Ray, Labs, Meds, VS Vital Signs Date Time Temp Pulse Resp B/P (MAP) Pulse Ox O2 Delivery O2 Flow Rate FiO2 08/05/25 06:37 98.2 97 16 132/86 99 98.2 Current Medications Medications (Trade) Dose Ordered Sig/Jose Route Start Time Stop Time Status Last Admin Clindamycin Phosphate (Cleocin Vial Inj) 600 mg ONCE ONCE IM 08/05/25 08:00 08/05/25 08:01 08/05/25 07:53 X-Ray, Labs, Meds, VS Comment Patient seen and examined by me. Patient has chronic hidradenitis. With two large nodules noted on her left wrist with erythema. I offered to open it the patient states she is very sensitive would rather continue at home with treatment. She will be given clindamycin 600 mg IM and sent home on Cleocin. I talked to her about chlorhexidine to help with prevention of these abscesses.. Patient was told that if redness becomes worse she needs to come back Time of 1ST Reevaluation: 07:59 Reevaluation 1ST: Improved Patient Education/Counseling: Diagnosis, Treatment, Prognosis, Need For Follow Up Family Education/Counseling: No Family Present SEPSIS Sepsis Screen Date sepsis recognized/suspect: Aug 05, 2025 Time Sepsis recognized/suspect: 640 Recent Procedure: No On Antibiotic Therapy: No Respiratory Rate >20: No Heart Rate >90: Yes Temp<36 C (96.8 F) or >38.3 C: No SBP <90 or MAP <65 mmHG: No New Acute Mental Status Change: No Is the patient on CPAP, BIPAP,: No Physician Orders Clinimix Per Pharmacy (08/05/25 07:45) Clindamycin Vial Inj (Cleocin Vial Inj) (08/05/25 08:00) Vital Signs Date Time Temp Pulse Resp B/P (MAP) Pulse Ox O2 Delivery O2 Flow Rate FiO2 08/05/25 06:37 98.2 97 16 132/86 99 98.2 Medications Medications Dose Ordered Sig/Jose Route Start Time Stop Time Status Last Admin Dose Admin Clindamycin Phosphate 600 mg ONCE ONCE IM 08/05/25 08:00 08/05/25 08:01 08/05/25 07:53 Departure 1 Departure Time of Disposition: 07:59 Impression: Primary Impression: Hidradenitis suppurativa Additional Impression: Cellulitis of breast Disposition: 01 HOME / SELF CARE / HOMELESS Condition: Good Additional Instructions: Start the oral antibiotics tomorrow By some chlorhexidine use it in the bath couple of days a week which will help prevention of the infection coming back Continue to apply heat this will help with the drainage of the wounds Finish all the antibiotics as directed e-Prescriptions Ibuprofen Micronized (Ibuprofen) 600 Mg Tab 600 MG PO Q6HPRN PRN for 5 Days, #20 TAB Prov: NAMITA RUSSELLP 08/05/25 Clindamycin Hcl (CLEOCIN) 150 Mg Cap 1 CAP PO QID for 7 Days, #40 CAP Prov: NAMITA RUSSELL INDUSTRIAL HYGIENE ENGINEER 08/05/25 Discharged With: Self Critical Care Note Critical Care Time?: No Stability Stability form required: NAMITA Purdy [facility] [place] Aug 05, 2025 07:36
[2025-08-05] MEDS ORDERED: CLINIMIX PER PHARMACY 0 ML IV SCH (07:45)
[2025-08-05] MEDS: CLINDAMYCIN 600 MG/4 ML VL IM ONE (07:53)
[2025-08-05 08:00] VITALS: BP 128/84; PULSE 97; RESP 16; TEMP 98.5; O2SAT 98
[2025-08-05] MEDS ORDERED: IBUP1TAB5 PO (08:01)
[2025-08-05] MEDS ORDERED: CLIN150C PO (08:01)
== END 2025-08-05 08:13 | disposition home or self-care (01) ==
LOC: ER 06:36
DX: L73.2 Hidradenitis suppurativa (principal); N61.0 Mastitis without abscess; I10 Essential (primary) hypertension; J45.909 Unspecified asthma, uncomplicated; K21.9 Gastro-esophageal reflux disease without esophagitis; Z79.899 Other long term (current) drug therapy; Z87.440 Personal history of urinary (tract) infections; Z88.0 Allergy status to penicillin; Z88.2 Allergy status to sulfonamides
CPT/HCPCS: 96372

== ENCOUNTER 2025-08-23 08:37 | Emergency (ER) | payer MEDICAID ==
[~2025-08-23] VITALS: Ht 157.5 cm; Wt 105.8 kg
[~2025-08-23 08:37] MED LIST changes: +CLIN150C PO; +IBUP1TAB5 PO
[2025-08-23] MEDS ORDERED: CEPH500C PO (09:22)
--- NOTE | 2025-08-23 09:24 | ED.PDOC ---
History of Present Illness(SKN HPI Comments A 34 YEAR OLD FEMALE PRESENTS TO THE ED WITH COMPLAINT OF PAINFUL LUMP OF LEFT AXILLA. PATIENT STATES SHE HAS HAD A PAINFUL AND RED LUMP IN HER LEFT AXILLARY REGION FOR THE PAST 1 WEEK. HAS A CONCERNED SHE MAY HAVE AN INFECTION TO THIS AREA DUE TO SHAVING THIS AREA. PATIENT DENIES FEVER, CHILLS, SHORTNESS OF BREATH, CHEST PAIN, ABDOMINAL PAIN, NAUSEA, VOMITING, HEADACHE, OR OTHER COMPLAINTS. NO OTHER SYMPTOMS OR MODIFYING FACTORS AT THIS TIME. PATIENT IS ALERT, ORIENTED X 4, AND HAS STEADY GAIT. Chief Complaint: Wound Check Time Seen by MD: 08:49 Primary Care Provider: Unknown History of Present Illness: Nurses Notes, Medications, Allergies Allergies: Coded Allergies: Penicillins (Verified Allergy, Unknown, 01/19/21) Sulfa Antibiotics (Verified Allergy, Unknown, 04/30/20) Home Meds Active Scripts Ibuprofen (Ibuprofen) 800 Mg Tab, 1 TAB PO TID, #30 TAB Prov:SOLOMON WOOTEN 08/23/25 Cephalexin Monohydrate (Cephalexin) 500 Mg Cap, 2 CAP PO BID, #40 CAP Prov:SOLOMON WOOTEN 08/23/25 Ibuprofen Micronized (Ibuprofen) 600 Mg Tab, 600 MG PO Q6HPRN PRN for 5 Days, #20 TAB Prov:NAMITA RUSSELL [employer] SUPERVIS[employer] 08/05/25 Clindamycin Hcl (CLEOCIN) 150 Mg Cap, 1 CAP PO QID for 7 Days, #40 CAP Prov:NAMITA RUSSELL [employer] SUPER[employer] 08/05/25 Ibuprofen (Ibuprofen) 800 Mg Tab, 1 TAB PO TID, #30 TAB Prov:SOLOMON WOOTEN 05/19/25 Cephalexin Monohydrate (Cephalexin) 500 Mg Cap, 1 CAP PO QID, #40 CAP Prov:SOLOMON WOOTEN 05/19/25 Nitrofurantoin Monohydrate Mac (Macrobid) 100 Mg Cap, 100 MG PO BID for 10 Days, #20 CAP Prov:JO OCAMPO MD 09/01/23 Dicyclomine Hcl (BENTYL CAPSULE) 10 Mg Cp, 1 CAP PO TID for 3 Days, #10 CAP 11 Refills Prov:JO OCAMPO MD 09/01/23 Ondansetron Odt 4MG Tab (ZOFRAN PO) 4 Mg Tb, 4 MG PO BID for 7 Days, #14 TAB ODT TAB-DISSOLVE IN MOUTH, THEN SWALLOW Prov:JO OCAMPO MD 09/01/23 Nitrofurantoin Monohydrate Mac (Macrobid) 100 Mg Cap, 100 MG PO BID for 7 Days, #20 CAP Prov:JAGUAR ORTIZ MD 08/22/23 Tamsulosin Hcl (Flomax) 0.4 Mg Cap, 1 CAP PO DAILY for 5 Days, #5 CAP 11 Refills Prov:JAGUAR ORTIZ MD 08/22/23 Ibuprofen Micronized (MOTRIN TABLET) 600 Mg Tb, 600 MG PO TID PRN for 5 Days, #15 TAB *Black box warning-NSAIDS can increase risk of NE & hypertension, GI irritation, ulceration, bleed, perferation. Do not use post cardiac surgery. Use short duration/lowest effective dose. Prov:JAGUAR ORTIZ MD 08/22/23 Ondansetron Odt 4MG Tab (ZOFRAN PO) 4 Mg Tb, 4 MG PO Q6HPRN PRN, #12 TAB 0 Refills ODT TAB-DISSOLVE IN MOUTH, THEN SWALLOW Prov:KYLE CHIN [facility] 03/08/23 Acetaminophen (Tylenol) 325 Mg Tb, 325 MG PO Q4HPRN PRN, #30 TAB 0 Refills Take 1-2 caps po q4h prn for pain (Do not exceed 3,000mg of acetaminophen in 24 hours) Prov:KYLE CHIN [facility] 03/08/23 Cephalexin Monohydrate (Cephalexin) 500 Mg Tab, 1 TAB PO QID for 7 Days, #28 TAB 0 Refills Prov:KYLE CHIN [facility] 03/08/23 Ciprofloxacin Hcl (Cipro) 500 Mg Tab, 1 TAB PO BID, #14 TAB Prov:SOLOMON WOOTEN 12/03/22 Ibuprofen (Ibuprofen) 800 Mg Tab, 1 TAB PO TID, #30 TAB Prov:SOLOMON WOOTEN 12/03/22 Pantoprazole Sodium Sesquihydr (Protonix) 40 Mg Tab, 40 MG PO DAILY for 10 Days, #10 TAB Prov:JAGUAR ORTIZ MD 06/26/22 Nitrofurantoin Monohydrate Mac (Macrobid) 100 Mg Cap, 100 MG PO BID for 7 Days, #14 CAP Prov:JAGUAR ORTIZ MD 06/26/22 Nitrofurantoin Monohydrate Mac (Macrobid) 100 Mg Cap, 100 MG PO BID for 5 Days, #10 CAP Prov:ROCKY RAMOS MD 05/17/22 Meclizine HCl (Meclizine 25) 25 Mg Tab, 25 MG PO BID for 3 Days, #6 TAB Prov:ROCKY RAMOS MD 05/17/22 Ibuprofen (Ibuprofen) 800 Mg Tab, 800 MG PO Q8HP PRN for 8 Days, #24 TAB Prov:SOLOMON WOOTEN 11/07/21 Clindamycin Hcl (Clindamycin Hcl) 300 Mg Cap, 300 MG PO QID for 7 Days, #28 CAP Prov:SOLOMON WOOTEN 11/07/21 Prednisone (Prednisone) 20 Mg Tab, 60 MG PO DAILY for 5 Days, #15 MG Prov:SOLOMON WOOTEN 10/02/21 Information Source: Patient Mode of Arrival: Ambulatory Severity: Moderate Timing: Days Duration: Since onset, Days Prehospital treatment: None Location: Other (LEFT AXILLA) Mechanism: Spontaneous Onset Occurence: Indoors Object: None Condition of Object: None Retained Foreign Body: No Wound Type: Other (FOLLICULITIS) Immunization Status of Animal: NA Tetanus: Unknown History of: None Associated Signs and Symptoms: Redness, Swelling, Pain Past Medical History PAST MEDICAL HISTORY: Asthma, GERD, HTN, UTI'S Surgical History: Denies all surgeries DRYING EQUIPMENT OPERATOR History: No Pertinent DRYING EQUIPMENT OPERATOR History Family History Family History: Reviewed,noncontributory to illness, Family hx of HTN Social History Smoker: Non-Smoker Alcohol: Denies ETOH Use Drugs: Denies Drug Use Lives In: Home Constitutional: denies: chills, diaphoresis, fatigue, fever, malaise, sweats, w eakness, others EENTM: denies: blurred vision, double vision, ear bleeding, ear discharge, ear drainage, ear pain, ear ringing, eye pain, eye redness, hearing loss, mouth pain, mouth swelling, nasal discharge, nose bleeding, nose congestion, nose pain, photophobia, tearing, throat pain, throat swelling, voice changes, others Respiratory: denies: cough, hemoptysis, orthopnea, SOB at rest, shortness of breath, SOB with excertion, stridor, wheezing, others Cardiovascular: denies: chest pain, dizzy spells, diaphoresis, Dyspnea on exertion, edema, irregular heart beat, left arm pain, lightheadedness, palpitations, PND, syncope, others Gastrointestinal: denies: abdomen distended, abdominal pain, blood streaked bowels, constipated, diarrhea, dysphagia, difficulty swallowing, hematemesis, melena, nausea, poor appetite, poor fluid intake, rectal bleeding, rectal pain, vomiting, others Genitourinary: denies: abnormal vagina bleeding, burning, dyspareunia, dysuria, flank pain, frequency, hematuria, incontinence, pain, , vagina di scharge, urgency, others Neurological: denies: dizziness, fainting, headache, left sided numbness, left sided weakness, numbness, paresthesia, pre-existing deficit, right sided numbness, right sided weakness, seizure, speech problems, tingling, tremors, weakness, others Musculoskeletal: denies: back pain, gout, joint pain, joint swelling, muscle pain, muscle stiffness, neck pain, others Integumetry: reports: lumps (PAINFUL LUMP OF LEFT AXILLA); denies: bruises, change in color, change in hair/nails, dryness, laceration, lesions, rash, wounds, others Allergic/Immunocompromised: denies: Difficulty Healing, Frequent Infections, Hives, Itching, others Hematologic/Lymphatic: denies: anemia, blood clots, easy bleeding, easy bruising, swollen glands, others Endocrine: denies: excessive hunger, excessive sweating, excessive thirst, excessive urination, flushing, intolerance to cold, intolerance to heat, unexplained weight gain, unexplained weight loss, others Psychiatric: denies: anxiety, bipolar disorder, depression, hopeless, panic disorder, schizophrenia, sleepless, suicidal, others All Other Systems: Reviewed and Negative Physical Exam General Appearance: No Apparent Distress, Obese HEENT: Normal ENT Inspection, PERRL/EOMI, Pharynx Normal, TMs Normal Neck: Full Range of Motion, Non-Tender, Normal, Normal Inspection Respiratory: Chest Non-Tender, Lungs Clear, No Accessory Muscle Use, No Respiratory Distress, Normal Breath Sounds Cardiovascular: No Edema, No JVD, No Murmur, No Gallop, Normal Peripheral Pulses, Regular Rate/Rhythm Breast Exam: Deferred Gastrointestinal: No Organomegaly, Non Tender, No Pulsatile Mass, Normal Bowel Sounds, Soft Genitalia: Deferred Pelvic: Deferred Rectal: Deferred Extremities: No calf tenderness, Normal capillary refill, Normal range of motion, No pedal edema, Tender (WITH A RED BUMP ON LEFT AXILLAR REGION, NO OPEN WOUND AND HARDNESS SEEN. ) Musculoskeletal : Apperance: Normal Neurologic: Alert, copy lathe tender II-XII nml as Tested, No Motor Deficits, Normal Affect, Normal Mood, No Sensory Deficits Cerebellar Function: Normal Reflexes: Normal Skin: Dry, Normal Color, Warm Peripheral Pulses: 2+ carotid (R), 2+ carotid (L) Lymphatic: No Adenopathy Was a procedure done? Was a procedure done?: No Differential Diagnosis (INTG) Differential Diagnosis: N/A Differential Diagnosis: Abscess, Atopic dermatitis, Contact Dermatitis, Other (FURUNCLE, FOLLICULITIS, SKIN PIMPLE) Differential Diagnosis: N/A Abscess: N/A Differential Diagnosis: N/A X-Ray, Labs, Meds, VS Vital Signs Date Time Temp Pulse Resp B/P (MAP) Pulse Ox O2 Delivery O2 Flow Rate FiO2 08/23/25 08:42 98.0 106 16 140/101 98 98.0 X-Ray, Labs, Meds, VS Comment EXTERNAL MEDICAL RECORDS REVIEWED: [NONE] INDEPENDENT HISTORIANS: [NONE] SOCIAL DETERMINANTS OF HEALTH: [NONE] LABS ORDERED: NONE REVIEWED AND INTERPRETED RESULTS: NONE IMAGING ORDERED: NONE TREATMENTS ORDERED: NONE PROCEDURES PERFORMED: NONE CRITICAL CARE TIME: NONE I HAVE DISCUSSED THE PATIENT WITH THE ATTENDING PHYSICIAN DR. ORTIZ AND HE AGREES WITH THE PATIENT'S PLAN OF CARE AND DISPOSITION. BASED ON HISTORY OF PRESENT ILLNESS, AND PHYSICAL EXAM, PATIENT WILL BE DISCHARGED HOME. DISCUSSED PLAN FOR DISCHARGE HOME WITH RX [KEFLEX AND MOTRIN 800 MG]. MEDICATION WARNINGS GIVEN. SHARED DECISION MAKING: PATIENT INSTRUCTED TO FOLLOW UP WITH PRIMARY CARE PROVIDER IN 1-2 DAYS FOR RE-EVALUATION OF SYMPTOMS. PATIENT VERBALIZES UNDERSTANDING TO RETURN TO ED FOR NEW OR WORSENING SYMPTOMS OR IF FOLLOW UP WITH PCP CANNOT BE OBTAINED. PATIENT FEELS COMFORTABLE GOING HOME AT THIS TIME. ALL QUESTIONS ADDRESSED AT TIME OF DISCHARGE. Time of 1ST Reevaluation: 09:42 Reevaluation 1ST: Improved Patient Education/Counseling: Diagnosis, Treatment, Need For Follow Up Family Education/Counseling: Diagnosis, Treatment, Need For Follow Up Medical Screening: No EMC Exist At This Time SEPSIS Sepsis Screen Date sepsis recognized/suspect: Aug 23, 2025 Time Sepsis recognized/suspect: 0845 Recent Procedure: No On Antibiotic Therapy: No Respiratory Rate >20: No Heart Rate >90: Yes Temp<36 C (96.8 F) or >38.3 C: No SBP <90 or MAP <65 mmHG: No New Acute Mental Status Change: No Is the patient on CPAP, BIPAP,: No Vital Signs Date Time Temp Pulse Resp B/P (MAP) Pulse Ox O2 Delivery O2 Flow Rate FiO2 08/23/25 08:42 98.0 106 16 140/101 98 98.0 Departure 1 Departure Time of Disposition: 09:43 Impression: Primary Impression: Folliculitis of left axilla Disposition: HOME / SELF CARE / HOMELESS Condition: Stable Additional Instructions: FOLLOW-UP WITH PCP IN 1 TO 2 DAYS. TAKE MEDICATIONS PRESCRIBED. RETURN TO ED FOR ANY NEW OR WORSENING SYMPTOMS. e-Prescriptions Ibuprofen (Ibuprofen) 800 Mg Tab 1 TAB PO TID, #30 TAB Prov: SOLOMON WOOTEN 08/23/25 Cephalexin Monohydrate (Cephalexin) 500 Mg Cap 2 CAP PO BID, #40 CAP Prov: SOLOMON WOOTEN 08/23/25 Discharged With: Self Critical Care Note Critical Care Time?: No Stability Stability form required: No I personally scribed for SOLOMON WOOTEN ([email or web address]) on 08/23/25 at 09:24. Electronically submitted by Myron Ramirez ([email or web address]). SOLOMON WOOTEN Aug 23, 2025 09:24
[2025-08-23 09:34] VITALS: BP 126/83; PULSE 105; RESP 19; TEMP 98.8; O2SAT 96
== END 2025-08-23 09:39 | disposition home or self-care (01) ==
LOC: ER 08:37
DX: L73.9 Follicular disorder, unspecified (principal); J45.909 Unspecified asthma, uncomplicated; I10 Essential (primary) hypertension; Z79.899 Other long term (current) drug therapy; Z88.0 Allergy status to penicillin; Z88.2 Allergy status to sulfonamides